=== PATIENT | male | born 1975 | race Caucasian/White ===

== ENCOUNTER 2022-12-30 12:24 | Emergency (ER) | payer OTHER ==
[~2022-12-30] VITALS: Ht 193 cm; Wt 118.2 kg
[2022-12-30 12:35] VITALS: TEMP 98.5
[2022-12-30 13:45] VITALS: BP 203/111; PULSE 80; O2SAT 95
[2022-12-30 13:45] LABS: BASOPHILS # (AUTO) 0.1 X10'3 (0-0.2); BASOPHILS % (AUTO) 0.6 % (0-1); EOSINOPHILS # (AUTO) 0.2 X10'3 (0-0.9); EOSINOPHILS % (AUTO) 2.2 % (0-6); HEMATOCRIT 48.8 % (42.0-52.0); LYMPHOCYTES # (AUTO) 4.1 X10'3 (1.1-4.8); LYMPHOCYTES % (AUTO) 38.1 % (21-51); MEAN CORPUSCULAR HEMOGLOBIN 35.6 PG (27.0-31.0); MEAN CORPUSCULAR HGB CONC 34.8 g/dL (33.0-36.5); MEAN CORPUSCULAR VOLUME 102.1 FL (78-98); MEAN PLATELET VOLUME 8.7 FL (7.4-10.4); MONOCYTES # (AUTO) 1.1 X10'3 (0-0.9); MONOCYTES % (AUTO) 10.2 % (2-12); NEUTROPHILS # (AUTO) 5.2 X10'3 (1.8-7.7); NEUTROPHILS % (AUTO) 48.9 % (42-75); PLATELET COUNT 154 X10'3 (140-440); RED BLOOD COUNT 4.78 X10'6 (4.70-6.10); RED CELL DISTRIBUTION WIDTH 12.2 % (11.5-14.5); WHITE BLOOD COUNT 10.7 X10'3 (4.5-11.0)
[2022-12-30 13:57] LABS: ALANINE AMINOTRANSFERASE 61 U/L (12-78); ALBUMIN 4.2 G/DL (3.4-5.0); ALBUMIN/GLOBULIN RATIO 0.9 (1.1-1.5); ALKALINE PHOSPHATASE 104 IU/L (46-116); ANION GAP 11 (8-16); ASPARTATE AMINO TRANSFERASE 76 U/L (10-37); BLOOD UREA NITROGEN 10 MG/DL (7-18); BUN/CREATININE RATIO 13.7 (10.0-20.0); CALCIUM 9.5 MG/DL (8.5-10.1); CHLORIDE 100 MMOL/L (99-107); CREATININE 0.73 MG/DL (0.60-1.10); GLUCOSE 124 MG/DL (70-104); LIPASE 108 U/L (73-393); POTASSIUM 4.3 MMOL/L (3.5-5.1); SODIUM 137 MMOL/L (135-145); TOTAL PROTEIN 8.7 G/DL (6.4-8.2); eGFR > 90 ML/MIN
[2022-12-30] MEDS ORDERED: LORazepam 1 MG tablet PO ONE (14:10)
[2022-12-30] MEDS ORDERED: HYDROcodone/acetaminophen 10/325mg tab PO ONE (14:10)
[2022-12-30 14:36] VITALS: RESP 20
== END 2022-12-30 14:38 | disposition home or self-care (01) ==
LOC: ER 12:25
DX: K42.9 Umbilical hernia without obstruction or gangrene (principal); F17.200 Nicotine dependence, unspecified, uncomplicated; I10 Essential (primary) hypertension; Z72.89 Other problems related to lifestyle
CPT/HCPCS: 36415; 80053; 82948; 83690; 85025; 93005; 99284; J7030; L0220

== ENCOUNTER 2023-04-02 09:08 | Day surgery (SDC) | payer OTHER ==
[2023-03-26 09:26] LABS: BASOPHILS # (AUTO) 0.1 X10'3 (0-0.2); BASOPHILS % (AUTO) 0.5 % (0-1); EOSINOPHILS # (AUTO) 0.4 X10'3 (0-0.9); EOSINOPHILS % (AUTO) 3.2 % (0-6); LYMPHOCYTES # (AUTO) 3.8 X10'3 (1.1-4.8); LYMPHOCYTES % (AUTO) 34.3 % (21-51); MEAN CORPUSCULAR HEMOGLOBIN 35.5 PG (27.0-31.0); MEAN CORPUSCULAR HGB CONC 34.9 g/dL (33.0-36.5); MEAN CORPUSCULAR VOLUME 101.8 FL (78-98); MONOCYTES # (AUTO) 1.1 X10'3 (0-0.9); MONOCYTES % (AUTO) 10.2 % (2-12); NEUTROPHILS # (AUTO) 5.7 X10'3 (1.8-7.7); NEUTROPHILS % (AUTO) 51.8 % (42-75); PRE OP HEMATOCRIT 46.2 % (42.0-52.0); PRE OP HEMOGLOBIN 16.1 g/dL (14.0-17.9); PRE OP PLATELET COUNT 191 X10'3 (140-440); RED BLOOD COUNT 4.54 X10'6 (4.70-6.10); RED CELL DISTRIBUTION WIDTH 12.7 % (11.5-14.5)
[2023-03-26 09:49] LABS: ALBUMIN 4.2 G/DL (3.4-5.0); ALBUMIN/GLOBULIN RATIO 0.9 (1.1-1.5); ALKALINE PHOSPHATASE 96 IU/L (46-116); BLOOD UREA NITROGEN 16 MG/DL (7-18); BUN/CREATININE RATIO 19.8 (10.0-20.0); CALCIUM 10.4 MG/DL (8.5-10.1); CHLORIDE 98 MMOL/L (99-107); CREATININE 0.81 MG/DL (0.60-1.10); PRE OP ANION GAP 5 (8-16); PRE OP AST 67 U/L (10-37); PRE OP BILIRUB, TOTAL 0.9 MG/DL (0.0-1.0); PRE OP GLUCOSE 148 MG/DL (70-104); PRE OP SODIUM 132 MMOL/L (135-145); TOTAL CARBON DIOXIDE 29.4 MMOL/L (24-32); TOTAL PROTEIN 8.9 G/DL (6.4-8.2); eGFR > 90 ML/MIN
[2023-03-26 09:57] LABS: PRE OP ALT 81 U/L (30-65)
[~2023-04-02] VITALS: Ht 190.5 cm; Wt 114.8 kg
[2023-04-02] VITALS (8 sets, daily range): BP systolic 108–148; BP diastolic 52–93; PULSE 80–92; RESP 14–18; TEMP 98.1; O2SAT 94–99
[~2023-04-02 09:08] MED LIST: DILT30TA5 PO; LISI1TAB51 PO; ceFAZolin inj. 3,000 MG in normal saline 100ml IV soln 100 ML IV ONE; famotidine 20mg tablet PO ONE; ringers solution, lacted 1,000 ML IV SCH
[2023-04-02] MEDS ORDERED: fentaNYL/PF 50MCG/1 ML 2ML syringe IV PRN ×2 (09:55)
[2023-04-02] MEDS ORDERED: hydrALAZINE 20mg/ml inj. IV PRN (09:55)
[2023-04-02] MEDS ORDERED: morphine 4 MG/ML inj SYRINge IV PRN (09:55)
[2023-04-02] MEDS ORDERED: ringers solution, lacted 1,000 ML IV SCH (09:55)
[2023-04-02] MEDS ORDERED: labetalol 20mg/4ml (5mg/ml) syringe IV PRN (09:55)
[2023-04-02] MEDS ORDERED: ondansetron/PF 4mg/2ml inj IV PRN (09:55)
[2023-04-02] MEDS ORDERED: morphine 2 MG/ML inj. syringe IV PRN (09:55)
[2023-04-02] MEDS ORDERED: midazolam 1 mg/ML 2ml injection IV PRN (10:40)
[2023-04-02] MEDS ORDERED: glycopyrrolate 0.2mg/ml inj ONE (10:49)
[2023-04-02] MEDS ORDERED: neostigmine methylsulfate 1 MG/ML 10ml vial ONE (10:49)
[2023-04-02] MEDS ORDERED: sevoflurane 250ml liquid IH ONE (10:49)
[2023-04-02] MEDS ORDERED: BUPIVAcaine/PF 2.5mg/ml (0.25%) 10ml vial ONE ×2 (10:53→11:00)
[2023-04-02] MEDS ORDERED: BUPIVACAINE liposomal/PF 13.3 MG/ML vial IM ONE (10:53)
[2023-04-02] MEDS ORDERED: MIDAZolam 1 MG/ML 5ML VIAL ONE (10:56)
[2023-04-02] MEDS ORDERED: ondansetron/PF 4mg/2ml inj ONE (10:56)
[2023-04-02] MEDS ORDERED: propofol inj 20 ML IV ONE (10:56)
[2023-04-02] MEDS ORDERED: rocuronium 10mg/ml inj IV ONE (10:56)
[2023-04-02] MEDS ORDERED: LIDOcaine 1%/PF 5ML 10 MG/ML VIAL ONE (10:56)
[2023-04-02] MEDS ORDERED: dexamethasone sod phosphate 4mg/ml inj. ONE (10:56)
[2023-04-02] MEDS ORDERED: fentaNYL /PF 50mcg/ml 5ml ampule ONE (10:56)
[2023-04-02] MEDS ORDERED: LIDOcaine 1% 30ml preserv. free vial ONE (11:00)
[2023-04-02] MEDS ORDERED: labetalol 20mg/4ml (5mg/ml) syringe IV ONE (11:07)
--- NOTE | 2023-04-02 12:03 | NUR ---
Received from OR via [facility], accompanied by Anesthesiologist and report given by HANNY Anesthesiologist. PATIENT WAKING UP, DENIES PAIN, V/S WNL, SCD ON , PIV 20G LEFT FOREARM, BANDAID LAPS SITES CLOSED C/D/I TO ABDOMEN WITH ABDOMINAL BINDER. Addendum: 04/02/23 at 1234 by Tay Galarza RN Amended: Links added.
[2023-04-02] MEDS ORDERED: HYDROcodone/acetaminophen 5mg/325mg tablet PO PRN (12:10)
--- NOTE | 2023-04-02 13:03 | NUR ---
ALL DISCHARGE CRITERIA HAS BEEN MET. VSS, PAIN AT A TOLERABLE LEVEL, ABLE TO SAFELY AMBULATE AND TRANSFER SELF. IV TAKEN OUT WITHOUT ANY COMPLICATIONS. ALL DISCHARGE INSTRUCTIONS COVERED WITH PATIENT AND ALL QUESTIONS ANSWERED. PATIENT TAKEN OUT VIA WHEELCHAIR WITH ALL BELONGINGS TO PERSONAL VEHICLE WHERE FAMILY DROVE PATIENT HOME. Addendum: 04/02/23 at 1308 by Tay Galarza RN Amended: Links added.
== END 2023-04-02 13:03 | disposition home or self-care (01) ==
LOC: PAS 09:08
PROVIDERS: ATTEND Surgery
DX: K42.0 Umbilical hernia with obstruction, without gangrene (principal); I10 Essential (primary) hypertension; E66.9 Obesity, unspecified; F41.9 Anxiety disorder, unspecified; Z79.899 Other long term (current) drug therapy; Z68.34 Body mass index [BMI] 34.0-34.9, adult
CPT/HCPCS: 36415; 49592; 64488; 80053; 82948; 85025; C1781; C9290; J0690; J1100; J2250; J2405; J2704; J2710; J3010; J3490; J7030; J7120; S2900; Z7506; Z7508; Z7512; A4215; A4618